=== PATIENT | female | born 1995 | race Caucasian/White ===

== ENCOUNTER 2017-02-19 15:26 | Outpatient (CLI) | payer BC, MEDICAID ==
--- NOTE | 2017-02-23 19:43 | Non Stress Test Report ---
Non Stress Test Datetime Report Generated by CPN: 02/23/2017 19:43 DEMOGRAPHIC EGA NST: 35.0 INDICATION Indication for Study: Diabetes Mellitus; Ordered by Provider MONITORING Monitor Explained: Monitor Explained; Test Explained; Patient Verbalized Understanding Time on Monitor: 02/19/2017 15:37 Time off Monitor: 02/19/2017 15:58 NST Duration: 21 NST INTERVENTIONS NST Interventions: PO Hydration; Reposition Patient Physician Notified NST: J Glasgow CNM BABY A: [id number] BABY A Movement : Present Contraction Frequency : x0 FHR Baseline : 130 Accelerations : 15X15 Decelerations : None Variability : Moderate 6-25bpm NST Review: Meets Criteria for Reactive NST NST Review and Verified By : GADIEL Thornton Results: Reactive NST REPORT Report Trigger: Send Report
== END 2017-02-19 15:58 | disposition home or self-care (01) ==
LOC: LC 15:26
PROVIDERS: ATTEND Specialist
PROC: 4A1HXCZ Monitoring of Products of Conception, Cardiac Rate, External Approach (ICD-10-PCS; principal; 2017-02-19)
DX: O24.419 Gestational diabetes mellitus in pregnancy, unspecified control (principal); Z3A.35 35 weeks gestation of pregnancy
CPT/HCPCS: 59025

== ENCOUNTER 2017-02-23 19:46 | Outpatient (CLI) | payer BC, MEDICAID ==
[2017-02-23 20:47] LABS: APPEARANCE,URINE CLEAR; BILIRUBIN,URINE NEGATIVE (NEGATIVE); GLUCOSE, URINE 50 mg/dL (NEGATIVE); KETONES,URINE NEGATIVE (NEGATIVE); LEUKOCYTE ESTERASE,URINE NEGATIVE (NEGATIVE); NITRITE,URINE NEGATIVE (NEGATIVE); PROTEIN,URINE 30 mg/dL (NEGATIVE); URINE SPECIFIC GRAVITY 1.015; UROBILINOGEN,URINE NEGATIVE mg/dL (<2.0)
[2017-02-23] MEDS ORDERED: RINGERS SOLUTION,LACTATED 1,000 ML IV PRN (20:55)
[2017-02-23] MEDS ORDERED: ONDANSETRON HCL INJ/PF 4 MG/2 ML SDV IV ONE (20:55)
[2017-02-23] MEDS ORDERED: ONDANSETRON HCL INJ/PF 4 MG/2 ML SDV ONE (20:58)
[2017-02-23 21:07] LABS: URINE BARBITURATES SCREEN NEGATIVE; URINE METHADONE SCREEN NEGATIVE; URINE OPIATES LOW NEGATIVE; URINE PHENCYCLIDINE SCREEN NEGATIVE
--- NOTE | 2017-02-26 14:21 | Non Stress Test Report ---
Non Stress Test Datetime Report Generated by CPN: 02/26/2017 14:20 DEMOGRAPHIC Test Number: 2 EGA NST: 35.4 INDICATION Indication for Study: Ordered by Provider MONITORING Monitor Explained: Monitor Explained; Test Explained; Patient Verbalized Understanding Time on Monitor: 02/23/2017 20:19 Time off Monitor: 02/23/2017 21:56 NST Duration: 97 NST INTERVENTIONS NST Interventions: None Physician Notified NST: Dr Nix BABY A Movement : Present Contraction Frequency : occ FHR Baseline : 135 Accelerations : 15X15 Decelerations : None Variability : Moderate 6-25bpm NST Review: Meets Criteria for Reactive NST NST Review and Verified By : Terry Hawkins RN NST Results: Reactive NST REPORT Report Trigger: Send Report
== END 2017-02-23 22:06 | disposition home or self-care (01) ==
LOC: LC 19:46
PROVIDERS: ATTEND Obstetrics & Gynecology
PROC: 4A1HXCZ Monitoring of Products of Conception, Cardiac Rate, External Approach (ICD-10-PCS; principal; 2017-02-23)
DX: Z34.93 Encounter for supervision of normal pregnancy, unspecified, third trimester (principal); Z36 Encounter for antenatal screening of mother; Z3A.35 35 weeks gestation of pregnancy
CPT/HCPCS: 59025; 81001; 80307; J2405

== ENCOUNTER 2017-02-26 14:22 | Outpatient (CLI) | payer BC, MEDICAID | END 2017-02-26 14:59 | disposition home or self-care (01) | LOC: LC 14:22 | PROVIDERS: ATTEND Obstetrics & Gynecology | DX: O40.3XX0 Polyhydramnios, third trimester, not applicable or unspecified (principal); O24.419 Gestational diabetes mellitus in pregnancy, unspecified control; Z3A.36 36 weeks gestation of pregnancy | CPT/HCPCS: 59025 ==

== ENCOUNTER 2017-03-18 14:49 | Outpatient (CLI) | payer BC, MEDICAID ==
--- NOTE | 2017-03-18 14:57 | Non Stress Test Report ---
Non Stress Test Datetime Report Generated by CPN: 03/18/2017 14:56 DEMOGRAPHIC EGA NST: 36.0 INDICATION Indication for Study: Polyhydramnios; Other Indication for Study (NST) Other: GDM VITAL SIGNS Temperature - NST: 97.3 Pulse - NST: 73 RESP - NST: 16 NBPSYS NST: 112 NBPDIA NST: 70 MONITORING Monitor Explained: Monitor Explained; Test Explained; Patient Verbalized Understanding; Other Time on Monitor: 02/26/2017 14:34 Time off Monitor: 02/26/2017 14:56 NST Duration: 22 NST INTERVENTIONS NST Interventions: PO Hydration Physician Notified NST: Dr. Neilsen, provider reviewed str BABY A: [id number] BABY A Movement : Present Contraction Frequency : None FHR Baseline : 135 Accelerations : 15X15 Decelerations : None Variability : Moderate 6-25bpm NST Review: Meets Criteria for Reactive NST NST Review and Verified By : Neftaly Munson RN NST Results: Reactive NST REPORT Report Trigger: Send Report
--- NOTE | 2017-03-18 16:32 | Non Stress Test Report ---
Non Stress Test Datetime Report Generated by CPN: 03/18/2017 16:32 DEMOGRAPHIC EGA NST: 38.6 INDICATION Indication for Study: Ordered by Provider MONITORING Monitor Explained: Monitor Explained; Test Explained; Patient Verbalized Understanding Time on Monitor: 03/18/2017 15:00 Time off Monitor: 03/18/2017 15:59 NST Duration: 59 NST INTERVENTIONS NST Interventions: None Physician Notified NST: Dr. Nix BABY A Movement : Present Contraction Frequency : occ FHR Baseline : 135 Accelerations : 15X15 Decelerations : None Variability : Moderate 6-25bpm NST Review: Meets Criteria for Reactive NST NST Review and Verified By : Neftaly Dominguez RN NST Results: Reactive NST REPORT Report Trigger: Send Report
--- NOTE | 2017-03-18 16:43 | RADIOLOGY REPORT (SQ) ---
EXAM DESCRIPTION: U/S OB LIMITED COMPLETED DATE/TIME: 03/18/2017 4:35 pm REASON FOR STUDY: NUBIA please COMPARISON: None. TECHNIQUE: Limited transabdominal grayscale ultrasound for evaluation of specific requested obstetri james parameters. LIMITATIONS: None. FINDINGS: NUBIA: 21.8 cm. FHR: 162 beats per minute. PRESENTATION: Cephalic. PLACENTA: Fundal. OTHER: No other significant findings. IMPRESSION: LIMITED OBSTETRICAL ULTRASOUND WITH MEASURED PARAMETERS DELINEATED ABOVE. Trimester of : Third trimester - 28 weeks to delivery. TECHNICAL DOCUMENTATION: JOB ID: [id number] [employer]- All Rights Reserved
== END 2017-03-18 16:49 | disposition home or self-care (01) ==
LOC: LC 14:49
PROVIDERS: ATTEND Obstetrics & Gynecology
PROC: 4A1HXCZ Monitoring of Products of Conception, Cardiac Rate, External Approach (ICD-10-PCS; principal; 2017-03-18)
DX: O40.3XX0 Polyhydramnios, third trimester, not applicable or unspecified (principal); Z3A.38 38 weeks gestation of pregnancy
CPT/HCPCS: 59025; 76815

== ENCOUNTER 2017-03-25 07:29 | Inpatient (IN) | payer BC, MEDICAID ==
[2017-03-25 08:03] LABS: APPEARANCE,URINE CLEAR; BILIRUBIN,URINE NEGATIVE (NEGATIVE); GLUCOSE, URINE NEGATIVE (NEGATIVE); KETONES,URINE NEGATIVE (NEGATIVE); LEUKOCYTE ESTERASE,URINE NEGATIVE (NEGATIVE); NITRITE,URINE NEGATIVE (NEGATIVE); PROTEIN,URINE NEGATIVE (NEGATIVE); URINE SPECIFIC GRAVITY 1.008; UROBILINOGEN,URINE NEGATIVE mg/dL (<2.0)
[2017-03-25 08:18] LABS: URINE BARBITURATES SCREEN NEGATIVE; URINE METHADONE SCREEN NEGATIVE; URINE OPIATES LOW NEGATIVE; URINE PHENCYCLIDINE SCREEN NEGATIVE
[2017-03-25] MEDS ORDERED: PENICILLIN G-K 5 MILLION UNIT VIAL IV ONE (11:10)
[2017-03-25] MEDS ORDERED: PENICILLIN G-K 5 MILLION UNIT VIAL ONE ×2 (11:25→14:43)
[2017-03-25] MEDS ORDERED: RINGERS SOLUTION,LACTATED 1,000 ML IV PRN (11:36)
[2017-03-25] MEDS ORDERED: RINGERS SOLUTION,LACTATED 1,000 ML IV ONE (11:36)
[2017-03-25] MEDS ORDERED: PENICILLIN G POTASSIUM 5,000,000 UNIT in DEXTROSE 5%-WATER 100 ML IV ONE (11:36)
[2017-03-25] MEDS ORDERED: EPHEDRINE SULFATE INJ 50 MG/1 ML AMPULE ONE (11:51)
[2017-03-25] MEDS ORDERED: BUPIVACAINE HCL 0.25 % INJ/PF (2.5 MG/1 ML) 30 ML VIAL ONE (11:52)
[2017-03-25] MEDS ORDERED: FENTANYL/BUPIVACAINE/NS/PF 200 MCG/100 ML RTUINJ EPI ONE (11:52)
[2017-03-25 12:12] LABS: ABSOLUTE BASOPHILS # (AUTO) 0.1 10^3/uL (0.0-0.2); ABSOLUTE EOSINOPHILS # (AUTO) 0.1 10^3/uL (0.0-0.6); ABSOLUTE LYMPHOCYTES (AUTO) 1.5 10^3/uL (0.5-4.7); ABSOLUTE MONOCYTES (AUTO) 0.4 10^3/uL (0.1-1.4); ABSOLUTE NEUT (AUTO) 7.8 10^3/uL (1.7-8.2); BASOPHILS % (AUTO) 0.6 % (0-2); EOSINOPHILS % (AUTO) 1.2 % (0-6); MEAN CORPUSCULAR HEMOGLOBIN 27.1 pg (27.0-33.4); MEAN CORPUSCULAR HGB CONC 34.3 g/dL (32.0-36.0); MEAN CORPUSCULAR VOLUME 79 fl (80-97); MONOCYTES % (AUTO) 3.9 % (3-13); RED BLOOD COUNT 4.05 10^6/uL (3.72-5.28); RED CELL DISTRIBUTION WIDTH 13.9 % (11.5-14.0); SEGMENTED NEUTROPHILS % (AUTO) 79.3 % (42-78); WHITE BLOOD COUNT 9.8 10^3/uL (4.0-10.5)
[2017-03-25 13:22] LABS: CREATININE RESULT 0.67 mg/dL (0.52-1.25)
[2017-03-25] MEDS ORDERED: LIDOCAINE 1% INJ-PF (10 MG/ML) 30 ML SDV ONE (13:32)
[2017-03-25] MEDS ORDERED: OXYTOCIN/NORMAL SALINE 20 UNIT/1,000 ML RTUINJ ONE (13:32)
[2017-03-25] MEDS ORDERED: MISOPROSTOL 0.2 MG TABLET ONE (13:34)
[2017-03-25] MEDS ORDERED: ZOLPIDEM TARTRATE 5 MG TABLET PO PRN (17:03)
[2017-03-25] MEDS ORDERED: PROMETHAZINE HCL 25 MG SUPP.RECT PR PRN (17:03)
[2017-03-25] MEDS ORDERED: PSEUDOEPHEDRINE HCL 30 MG TABLET PO PRN (17:03)
[2017-03-25] MEDS ORDERED: PROMETHAZINE HCL INJ 25 MG/1 ML VIAL IV PRN (17:03)
[2017-03-25] MEDS ORDERED: NA PHOS,M-B/NA PHOS,DI-BA (ADULT) 133 ML ENEMA PR PRN (17:03)
[2017-03-25] MEDS ORDERED: DIPH/PERTUSS(ACELL)/TETANUS VAC/PF 0.5 ML SYR (>=10YO) IM PRN (17:03)
[2017-03-25] MEDS ORDERED: ACETAMINOPHEN 650 MG SUPP.RECT PR PRN (17:03)
[2017-03-25] MEDS ORDERED: GLYCERIN/WITCH HAZEL LEAF 1 EACH MED..PAD TP PRN (17:03)
[2017-03-25] MEDS ORDERED: DIPHENHYDRAMINE HCL 25 MG CAPSULE PO PRN (17:03)
[2017-03-25] MEDS ORDERED: MEASLES,MUMPS&RUBELLA VACC/PF 0.5 ML VIAL SUBCUT PRN (17:03)
[2017-03-25] MEDS ORDERED: OXYTOCIN/NORMAL SALINE 20 UNIT/1,000 ML RTUINJ IV PRN (17:03)
[2017-03-25] MEDS ORDERED: BENZOCAINE/MENTHOL AEROSOL SPRAY 56 ML TOP PRN (17:03)
[2017-03-25] MEDS ORDERED: ACETAMINOPHEN WITH CODEINE #3 TABLET PO PRN ×2 (17:03)
[2017-03-25] MEDS ORDERED: PROMETHAZINE HCL 25 MG TABLET PO PRN (17:03)
[2017-03-25] MEDS ORDERED: DIBUCAINE 1% OINTMENT 28 GM TP PRN (17:03)
[2017-03-25] MEDS ORDERED: MAGNESIUM HYDROXIDE SUSP 30 ML UDCUP PO PRN (17:03)
[2017-03-25] MEDS: PENICILLIN G POTASSIUM 2,500,000 UNIT in DEXTROSE 5%-WATER 50 ML IV SCH ×2 (19:03→22:53)
--- NOTE | 2017-03-25 19:08 | Delivery Summary ---
Del Sum A-C Datetime Report Generated by CPN: 03/25/2017 19:07 DELIVERY PERSONNEL DELIVERY PERSONNEL: [id number] Delivery Doctor:: Mallory Goyal MD Labor and Delivery Nurse:: Juan De Leon RNplatform loader Nurse:: LIZBETH Peterson Labourers/CUPOLA MELTER: Neena Morrisrge, ANALYTICS ARCHITECT MATERNAL INFORMATION Delivery Anesthesia: Epidural Medications After Delivery: Pitocin Drip 20 Units/1000ml NSS Estimated Blood Loss (ml): 200 Maternal Complications: None LABOR SUMMARY EDC: 03/26/2017 00:00 No. Babies in Womb: 1 Attempted: No Labor Anesthesia: Epidural LABOR INFORMATION Reason for Induction: Premature Rupture of Membranes Onset of Labor: 03/25/2017 07:30 Complete Dilatation: 03/25/2017 16:35 Oxytocin: N/A Group B Beta Strep: positive Antibiotics # of Doses: 2 Antibiotics Time of Last Dose: 1430 Name of Antibiotic Given: penicillin Steroids Given: None Reason Steroids Not Administered: Not Applicable MEMBRANES Membranes Rupture Method: Spontaneous Rupture of Membranes: 03/25/2017 11:50 Length of Rupture (hr): 4.90 Amniotic Fluid Color: Clear Amniotic Fluid Amount: Small Amniotic Fluid Odor: Normal STAGES OF LABOR Stage 1 hr: 9 Stage 1 min: 5 Stage 2 hr: 0 Stage 2 min: 9 Stage 3 hr: 0 Stage 3 min: 3 Total Time in Labor hr: 9 Total Time in Labor min: 17 VAGINAL DELIVERY Episiotomy: None Laceration #1: None Laceration Extension #1: N/A Laceration Repair: Not Applicable CSECTION DELIVERY Primary Indication: N/A BABY A INFORMATION Infant Delivery Date/Time: 03/25/2017 16:44 Method of Delivery: Vaginal Born in Route : No : N/A Forceps: N/A Vacuum Extraction: N/A Shoulder Dystocia : No PRESENTATION/POSITION BABY A Presentation: Cephalic Cephalic Presentation: Vertex Vertex Position: Left Occipital Anterior Breech Presentation: N/A PLACENTA INFORMATION BABY A Placenta Delivery Time : 03/25/2017 16:47 Placenta Method of Delivery: Spontaneous Placenta Status: Delivered SCORES BABY A Heart Rate 1 min: >100 bpm Resp Effort 1 min: Good Cry Reflex Irritability 1 min: Cough or Sneeze or Pulls Away Muscle Tone 1 min: Active Motion Color 1 min: Body [place], Extremities Blue Resuscitation Effort 1 min: Tactile Stimulation SCORE 1 MIN: 9 Heart Rate 5 min: >100 bpm Resp Effort 5 min: Good Cry Reflex Irritability 5 min: Cough or Sneeze or Pulls Away Muscle Tone 5 min: Active Motion Color 5 min: Body [place], Extremities Blue Resuscitation Effort 5 min: Tactile Stimulation SCORE 5 MIN: 9 INFANT INFORMATION BABY A Gestational Age at Delivery: 39.6 Gestational Status: Full Term- 39- 40.6 Weeks Infant Outcome : Liveborn Infant Condition : Stable Infant Sex: Female IDENTIFICATION BABY A Verification Date/Time: 03/25/2017 17:02 ID Band Number: [id number] Mother's Name Verified: Yes RN Verifying : Vikram Daniel RNC/ L Roxannelund RN WEIGHT/LENGTH BABY A Infant Birthweight (gm): 2900 Weight (lb): 6 Infant Weight (oz): 6 Length (in): 19.00 Infant Length (cm): 48.26 CORD INFORMATION BABY A No. Cord Vessels: 3 Nuchal Cord : N/A Nuchal Cord- Other: compound hand Cord Blood Taken: Yes-For Eval (Mom's Blood Type - or O+) Infant Suction: Mouth; Nose ASSESSMENT BABY A Complications: None Physical Findings at Delivery: Within Normal Limits Infant Respirations: Appears Normal Skin to Skin: Yes Skin to Skin Time (min): [address]/ALS Called : No Care By: Juan De Leon RN Transferred To: Remains with Mother BABY B INFORMATION : N/A SIGNATURES Signature: with User ID: [email or web address] : I personally evaluated and examined the patient in conjunction with the MLP and agree with the assessment, treatment plan and disposition.
--- NOTE | 2017-03-25 19:09 | Delivery Summary ---
Del Sum A-C Datetime Report Generated by CPN: 03/25/2017 19:09 DELIVERY PERSONNEL DELIVERY PERSONNEL: [id number] Delivery Doctor:: Mallory Goyal MD Labor and Delivery Nurse:: Juan De Leon RNboilers and pressure vessels inspector Nurse:: LIZBETH Peterson Maintenance Fitter/HAND SIZER: Neena Morrisrge, BACON DE RINDER MATERNAL INFORMATION Delivery Anesthesia: Epidural Medications After Delivery: Pitocin Drip 20 Units/1000ml NSS Estimated Blood Loss (ml): 200 Maternal Complications: None LABOR SUMMARY EDC: 03/26/2017 00:00 No. Babies in Womb: 1 Attempted: No Labor Anesthesia: Epidural LABOR INFORMATION Reason for Induction: Premature Rupture of Membranes Onset of Labor: 03/25/2017 07:30 Complete Dilatation: 03/25/2017 16:35 Oxytocin: N/A Group B Beta Strep: positive Antibiotics # of Doses: 2 Antibiotics Time of Last Dose: 1430 Name of Antibiotic Given: penicillin Steroids Given: None Reason Steroids Not Administered: Not Applicable MEMBRANES Membranes Rupture Method: Spontaneous Rupture of Membranes: 03/25/2017 11:50 Length of Rupture (hr): 4.90 Amniotic Fluid Color: Clear Amniotic Fluid Amount: Small Amniotic Fluid Odor: Normal STAGES OF LABOR Stage 1 hr: 9 Stage 1 min: 5 Stage 2 hr: 0 Stage 2 min: 9 Stage 3 hr: 0 Stage 3 min: 3 Total Time in Labor hr: 9 Total Time in Labor min: 17 VAGINAL DELIVERY Episiotomy: None Laceration #1: None Laceration Extension #1: N/A Laceration Repair: Not Applicable CSECTION DELIVERY Primary Indication: N/A BABY A INFORMATION Infant Delivery Date/Time: 03/25/2017 16:44 Method of Delivery: Vaginal Born in Route : No : N/A Forceps: N/A Vacuum Extraction: N/A Shoulder Dystocia : No PRESENTATION/POSITION BABY A Presentation: Cephalic Cephalic Presentation: Vertex Vertex Position: Left Occipital Anterior Breech Presentation: N/A PLACENTA INFORMATION BABY A Placenta Delivery Time : 03/25/2017 16:47 Placenta Method of Delivery: Spontaneous Placenta Status: Delivered SCORES BABY A Heart Rate 1 min: >100 bpm Resp Effort 1 min: Good Cry Reflex Irritability 1 min: Cough or Sneeze or Pulls Away Muscle Tone 1 min: Active Motion Color 1 min: Body [place], Extremities Blue Resuscitation Effort 1 min: Tactile Stimulation SCORE 1 MIN: 9 Heart Rate 5 min: >100 bpm Resp Effort 5 min: Good Cry Reflex Irritability 5 min: Cough or Sneeze or Pulls Away Muscle Tone 5 min: Active Motion Color 5 min: Body [place], Extremities Blue Resuscitation Effort 5 min: Tactile Stimulation SCORE 5 MIN: 9 INFANT INFORMATION BABY A Gestational Age at Delivery: 39.6 Gestational Status: Full Term- 39- 40.6 Weeks Infant Outcome : Liveborn Infant Condition : Stable Infant Sex: Female IDENTIFICATION BABY A Verification Date/Time: 03/25/2017 17:02 ID Band Number: [id number] Mother's Name Verified: Yes RN Verifying : Vikram Daniel RNC/ L Roxannelund RN WEIGHT/LENGTH BABY A Infant Birthweight (gm): 2900 Weight (lb): 6 Infant Weight (oz): 6 Length (in): 19.00 Infant Length (cm): 48.26 CORD INFORMATION BABY A No. Cord Vessels: 3 Nuchal Cord : N/A Nuchal Cord- Other: compound hand Cord Blood Taken: Yes-For Eval (Mom's Blood Type - or O+) Infant Suction: Mouth; Nose ASSESSMENT BABY A Complications: None Physical Findings at Delivery: Within Normal Limits Infant Respirations: Appears Normal Skin to Skin: Yes Skin to Skin Time (min): 120 First Aid Officer/ALS Called : No Care By: Juan De Leon RN Transferred To: Remains with Mother BABY B INFORMATION : N/A SIGNATURES Signature: with User ID: [email or web address] : I personally evaluated and examined the patient in conjunction with the MLP and agree with the assessment, treatment plan and disposition.
--- NOTE | 2017-03-25 20:00 | Admission Physical ---
Datetime Report Generated by CPN: 03/25/2017 20:00 CURRENT ADMISSION Chief Complaint: Uterine Contractions Indication for Induction: Not Applicable Indication for Induction: Term, Intrauterine ; Active Labor Admit Impression- Other: Cervical change from 3-6 cm with ambulation Admit Plan: Admit to Unit; Initiate Labor Protocol ALLERGIES Medication Allergies: No Medication Allergies: No Known Allergies (03/18/2017) Medication Allergies: No Known Allergies (02/26/2017) Medication Allergies: No Known Allergies (02/19/2017) Latex: No Latex Allergies OBSTETRICAL HISTORY EDC: 03/26/2017 00:00 : 2 Para: 1 Term: 0 : 1 SAB: 0 IAB: 0 Ectopic: 0 Livin Cesareans: 0 VBACs: 0 Multiple Births: 0 Gestational Diabetes: Yes Rh Sensitization: No Incompetent Cervix: No IMAN: No Infertility: No ART Treatment: No Uterine Anomaly: No IUGR: No Hx Previous C/S: No Macrosomia: No Hx Loss/Stillborn: No PIH: Yes Hx : No Placenta Previa/Abruption: No Depression/PP Depression: Yes PTL/PROM: Yes Post Hemorrhage: No Current Procedures: Ultrasound; NST Obstetrical History Comments: 12/2011 Pre E, PTL, IUGR SEE RECORDS Alcohol: No Marijuana : No Cocaine: No Other Illicit Drugs: No Cigarettes: Never Smoker. 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 Surgery: No Heart Disease: No Hosp/Surgery: Yes Autoimmune Disorder: No Anesthetic Complications: No Kidney Disease: No Abnormal Pap Smear: No Neuro/Epilepsy: No Psychiatric Disorders: No Other Medical Diseases: No Hepatitis/Liver Disease: No Significant Family History: No Varicosities/Phlebitis: No Trauma/Violence : No Thyroid Dysfunction: No Medical History Comments: GDM, Hx PPD, Vag delivery 2011 INFECTIOUS HISTORY Gonorrhea: Yes Genital Herpes: No Chlamydia: Yes Tuberculosis: No Syphilis: No Hepatitis: No HIV/AIDS Exposure: No Rash or Viral Illness: No HPV: No PHYSICAL EXAM General: Normal HEENT: Normal Neurologic: Normal Thyroid: Deferred Heart: Normal Lungs: Normal Back: Normal Abdomen: Normal Genitourinary Exam: Deferred Extremities: Normal DTRs: Normal Pelvic Type: Adequate Physical Exam Comments: Gravid uterus Vital Signs: Reviewed; Within Normal Limits VAGINAL EXAM Dilatation: 6 Effacement: 80 Station: -1 MEMBRANES Membranes: Intact FETUS A EGA: 39.6 Monitoring: External US FHR- Baseline: 130 Variability: Moderate 6-25bpm Accelerations: 15X15 FHR Category: Category I Presentation: Vertex Admit Comment: Hx IUGR del at 32 wks Hx preeclampsia w G1 GC/Chla in --KEDAR negative Polyhydramnios x 1 in Positive GBS-antibx given Antepartum records available Admit for active labor PLANS FOR LABOR AND DELIVERY Labor and Delivery: None Pain Management: Epidural Feeding Preference: Formula Benefit of Breast Feed Discussed: Yes Circumcision: N/A INFORMED CONSENT Assignment: Mallory Goyal MD Signature: with User ID: Bernie : with User ID: Bernie : I personally evaluated and examined the patient in conjunction with the MLP and agree with the assessment, treatment plan and disposition.
[2017-03-25] MEDS: IBUPROFEN 800 MG TABLET PO SCH (21:36)
[2017-03-25] MEDS: FAMOTIDINE 20 MG TABLET PO SCH (21:37)
[2017-03-25] MEDS: FERROUS SULFATE 325 MG TABLET PO SCH (22:53)
[2017-03-25] MEDS: DOCUSATE SODIUM 100 MG CAPSULE PO SCH (22:53)
[2017-03-26] MEDS: IBUPROFEN 800 MG TABLET PO SCH ×3 (05:10→21:09)
[2017-03-26 08:18] LABS: HEMATOCRIT 28.9 % (36.0-47.0); HEMOGLOBIN 10.1 g/dL (12.0-15.5); HGB HCT DIFFERENCE 1.4; MEAN CORPUSCULAR HEMOGLOBIN 27.4 pg (27.0-33.4); MEAN CORPUSCULAR HGB CONC 34.8 g/dL (32.0-36.0); MEAN CORPUSCULAR VOLUME 79 fl (80-97); RED BLOOD COUNT 3.67 10^6/uL (3.72-5.28); RED CELL DISTRIBUTION WIDTH 14.3 % (11.5-14.0); WHITE BLOOD COUNT 11.4 10^3/uL (4.0-10.5)
--- NOTE | 2017-03-26 09:01 | PDOC PROGRESS REPORT ---
Subjective-OB Subjective: Post Delivery Day: 1 21 year old. Denies any needs at this time, states lochia is stable, pain well controlled, voiding without difficulty. Physical Exam (OB) Vital Signs: Temp Pulse Resp BP Pulse Ox 98.4 F 63 16 122/73 100 03/25/17 20:17 03/25/17 20:17 03/25/17 20:17 03/25/17 20:17 03/25/17 20:17 Intake & Output 03/25/17 03/26/17 03/27/17 06:59 06:59 06:59 Weight 60 kg - Lochia Lochia Amount: Small 10-25 ml Lochia Color: Rubra/Red - Abdomen Description: Soft, Round Hernia Present: No Fundal Description: Firm, Midline Fundal Height: u/u - u/2 Objective-Diagnostic Laboratory: 03/26/17 07:38 03/25/17 11:55 03/25/17 03/25/17 03/25/17 11:55 11:55 11:55 WBC 9.8 Cancelled RBC 4.05 Cancelled Hgb 11.0 L Cancelled Hct 32.0 L Cancelled MCV 79 L Cancelled MCH 27.1 Cancelled MCHC 34.3 Cancelled RDW 13.9 Cancelled Plt Count 180 Cancelled Seg Neutrophils % 79.3 H Lymphocytes % 15.0 Monocytes % 3.9 Eosinophils % 1.2 Basophils % 0.6 Absolute Neutrophils 7.8 Absolute Lymphocytes 1.5 Absolute Monocytes 0.4 Absolute Eosinophils 0.1 Absolute Basophils 0.1 Creatinine Est GFR ( Amer) Est GFR (Non-Af Amer) Blood Type O NEGATIVE Antibody Screen POSITIVE 03/25/17 03/26/17 11:55 07:38 WBC 11.4 H RBC 3.67 L Hgb 10.1 L Hct 28.9 L MCV 79 L MCH 27.4 MCHC 34.8 RDW 14.3 H Plt Count 174 Seg Neutrophils % Lymphocytes % Monocytes % Eosinophils % Basophils % Absolute Neutrophils Absolute Lymphocytes Absolute Monocytes Absolute Eosinophils Absolute Basophils Creatinine 0.67 Est GFR ( Amer) > 60 Est GFR (Non-Af Amer) > 60 Blood Type Antibody Screen Assessment and Plan(PN) - Assessment and Plan (1) Vaginal delivery Is this a current diagnosis for this admission?: Yes Plan: routine pp care d/c media planner / buyer (2) History of depression Is this a current diagnosis for this admission?: Yes Plan: d/c media planner / buyer 1 w f/u in office - Time Spent with Patient Time with patient: Less than 15 minutes Critical Time spent with patient: Less than 15 minutes Medications reviewed and adjusted accordingly: Yes - Disposition Anticipated Discharge: Home Within: within 24 hours
[2017-03-26] MEDS: PRENATAL VITAMIN W-O CA NO5/FE FUMARATE/FA CAPSULE PO SCH (09:32)
[2017-03-26] MEDS: FAMOTIDINE 20 MG TABLET PO SCH ×2 (09:32→21:09)
[2017-03-26] MEDS: FERROUS SULFATE 325 MG TABLET PO SCH ×2 (09:32→17:27)
[2017-03-26] MEDS: DOCUSATE SODIUM 100 MG CAPSULE PO SCH ×2 (09:33→17:28)
[2017-03-26] MEDS: SENNOSIDES/DOCUSATE 8.6-50 MG 1 EACH TABLET PO SCH (09:33)
[2017-03-27] MEDS: IBUPROFEN 800 MG TABLET PO SCH (06:33)
[2017-03-27 08:43] VITALS: BP 123/69
[2017-03-27] MEDS: DOCUSATE SODIUM 100 MG CAPSULE PO SCH (09:18)
[2017-03-27] MEDS: PRENATAL VITAMIN W-O CA NO5/FE FUMARATE/FA CAPSULE PO SCH (09:18)
[2017-03-27] MEDS: SENNOSIDES/DOCUSATE 8.6-50 MG 1 EACH TABLET PO SCH (09:18)
[2017-03-27] MEDS: FAMOTIDINE 20 MG TABLET PO SCH (09:18)
[2017-03-27] MEDS: FERROUS SULFATE 325 MG TABLET PO SCH (09:18)
--- NOTE | 2017-03-27 13:11 | PDOC DISCHARGE SUMMARY ---
Final Diagnosis Discharge Date: 03/27/17 - Final Diagnosis (1) Vaginal delivery Is this a current diagnosis for this admission?: Yes Discharge Data - Discharge Medication Home Medications: Aspirin [Aspirin 81 mg Chewable Tablet] 1 tab PO DAILY 02/19/17 Vit 10/Iron/Folic/Dha [Vitafol-Ob+Dha Combo Pack] 1 pkg PO DAILY Reason(s) for Admission: Onset of Labor Procedures: NST Intrapartum Procedure(s): Spontaneous Vaginal Delivery - Diagnosis Test Laboratory: Temp Pulse Resp BP Pulse Ox 98.4 F 59 L 16 123/69 100 03/27/17 12:24 03/27/17 12:24 03/27/17 12:24 03/27/17 08:31 03/27/17 12:24 03/25/17 03/25/17 03/25/17 07:40 11:55 11:55 RBC 4.05 Cancelled Hgb 11.0 L Cancelled Hct 32.0 L Cancelled Urine Opiates Screen NEGATIVE 03/26/17 07:38 RBC 3.67 L Hgb 10.1 L Hct 28.9 L Urine Opiates Screen - Discharge information/Instructions Discharge Activity: Activity As Tolerated, No Lifting Over 10 Pounds, Pelvic Rest Discharge Diet: Regular Disposition: HOME, SELF-CARE Follow up with: [facility] in: 4, Weeks
== END 2017-03-27 14:40 | disposition home or self-care (01) | DRG 775 ==
LOC: LC 07:29 → LR 11:42 → 2S 19:55
PROVIDERS: ADMIT Obstetrics & Gynecology; ATTEND Obstetrics & Gynecology
PROC: 10E0XZZ Delivery of Products of Conception, External Approach (ICD-10-PCS; principal; 2017-03-25)
PROC: 3E0234Z Introduction of Serum, Toxoid and Vaccine into Muscle, Percutaneous Approach (ICD-10-PCS; 2017-03-26)
DX: O24.420 Gestational diabetes mellitus in childbirth, diet controlled (principal); O36.0930 Maternal care for other rhesus isoimmunization, third trimester, not applicable or unspecified; O99.824 Streptococcus B carrier state complicating childbirth; O40.3XX0 Polyhydramnios, third trimester, not applicable or unspecified; O32.6XX0 Maternal care for compound presentation, not applicable or unspecified; O32.2XX0 Maternal care for transverse and oblique lie, not applicable or unspecified; Z3A.39 39 weeks gestation of pregnancy; Z37.0 Single live birth
CPT/HCPCS: 36415; 80307; 81005; 82565; 85025; 85027; 85461; 86592; 86850; 86870; 86900; 86901; J2540; J2590; J2790; J3490